=== PATIENT | female | born 1955 | race Caucasian/White ===

== ENCOUNTER → 2016-12-15 | Outpatient (CLI) | payer OTHER ==
[~2016-12-15] MED LIST: ANTIVERT25 MG PO; CLINDAMYCIN150 MG PO; Ecotrin325 MG PO; HYDROCODONE BIT1 T11 PO; LISINOPRIL2.5 MG; MEDROL DOSEPAK4 MG PO; MOTRIN800 MG PO; NORFLEX100 MG PO; PERCOCET 325 MG1 TA2 PO; PERCOCET 325 MG1 TA7 PO; PLAVIX75 MG; PREDNICOT20 MG PO; TORADOL10 MG PO; VALIUM5 MG PO; ZOCOR40 MG; Zofran4 MG PO
== END | disposition home or self-care (01) ==
LOC: MAMMO 03:11
DX: Z12.31 Encounter for screening mammogram for malignant neoplasm of breast (principal)

== ENCOUNTER 2017-06-01 03:20 | Emergency (ER) | payer OTHER ==
[~2017-06-01] VITALS: Ht 152.4 cm; Wt 88.5 kg
[2017-06-01 05:58] VITALS: BP 118/56
== END 2017-06-01 06:15 | disposition home or self-care (01) ==
LOC: ED 03:20
DX: R10.13 Epigastric pain (principal); M54.6 Pain in thoracic spine; Z88.2 Allergy status to sulfonamides; Z79.82 Long term (current) use of aspirin; Z79.899 Other long term (current) drug therapy

== ENCOUNTER 2017-10-18 23:38 | Emergency (ER) | payer OTHER ==
[~2017-10-18] VITALS: Ht 154.9 cm; Wt 89.8 kg
[2017-10-19 00:23] LABS: BILIRUBIN 1+ (NEGATIVE); BLOOD 3+ (NEGATIVE); CLARITY CLEAR (CLEAR); COLOR YELLOW (YELLOW); GLUCOSE NEGATIVE (NEGATIVE); KETONE NEGATIVE (NEGATIVE); LEUKO ESTERASE TRACE (NEGATIVE); NITRITE NEGATIVE (NEGATIVE); PH 5.5 (5.0-9.0); SPECIFIC GRAVITY >= 1.030 (1.005-1.030)
[2017-10-19 00:29] LABS: BASO % 0.2 % (0.0-1.0); EOS % 0.7 % (1.0-4.0); HEMATOCRIT 42.7 % (37.0-47.0); HEMOGLOBIN 14.4 g/dl (12.0-16.0); LYMPH # 0.5 10*3/uL (1.3-4.4); LYMPH % 12.4 % (27.0-41.0); MEAN CELL VOLUME 90.1 fl (81.0-99.0); MEAN CORPUSCULAR HGB 30.4 pg (27.0-31.0); MEAN CORPUSCULAR HGB CONC 33.7 g/dl (33.0-37.0); MEAN PLATELET VOLUME 9.1 fl (9.6-12.3); MONO # 0.3 10*3/uL (0.1-1.0); MONO % 7.1 % (3.0-9.0); NEUT # 3.5 10*3/uL (2.3-7.9); NEUT % 79.1 % (47.0-73.0); PLATELET COUNT AUTOMATED 121 10*3/uL (130-400); RED BLOOD COUNT 4.74 10*6/uL (4.10-5.10); RED CELL DISTRI WIDTH 12.8 % (0-14.5); WHITE BLOOD COUNT 4.4 10*3/uL (4.8-10.8)
[2017-10-19 00:47] LABS: ALBUMIN 3.5 gm/dl (3.1-4.5); ALKALINE PHOSPHATASE 124 U/L (45-117); BUN 10 mg/dl (7-24); CHLORIDE 102 mmol/L (98-107); CREATININE 0.82 mg/dL (0.55-1.02); POTASSIUM 3.8 mmol/L (3.5-5.1); SGOT/AST 102 IU/L (3-35); SGPT/ALT 108 U/L (12-78); SODIUM 139 mmol/L (136-145)
[2017-10-19 00:50] LABS: TROPONIN I < 0.015 ng/ml (<0.045)
[2017-10-19 00:53] LABS: CALCIUM OXALATE CRYSTALS 1+; RBC 21-30 rbc/hpf (0-2)
[2017-10-19 02:39] VITALS: BP 100/62
[2017-10-20] MEDS ORDERED: ZOFRAN ODT4 MG SL (13:28)
[2017-10-20] MEDS ORDERED: NORCO 10-325 T1 EACH PO (13:29)
== END 2017-10-19 02:46 | disposition home or self-care (01) ==
LOC: ED 23:38
PROVIDERS: Emergency Medicine Emergency Medical Services
DX: B34.9 Viral infection, unspecified (principal); R94.5 Abnormal results of liver function studies; M54.5 Low back pain; Z79.82 Long term (current) use of aspirin; Z88.2 Allergy status to sulfonamides

== ENCOUNTER 2017-10-20 10:56 | Emergency (ER) | payer OTHER ==
[~2017-10-20] VITALS: Ht 154.9 cm; Wt 89.8 kg
[2017-10-20] MEDS ORDERED: ZOFRAN ODT4 MG SL (13:28)
[2017-10-20] MEDS ORDERED: NORCO 10-325 T1 EACH PO (13:29)
[2017-10-20 13:46] VITALS: BP 124/65
== END 2017-10-20 13:56 | disposition home or self-care (01) ==
LOC: ED 10:56
DX: R51 Headache (principal); B34.9 Viral infection, unspecified; Z98.51 Tubal ligation status; Z98.890 Other specified postprocedural states; Z79.899 Other long term (current) drug therapy; Z79.82 Long term (current) use of aspirin; Z88.2 Allergy status to sulfonamides

== ENCOUNTER 2017-10-31 17:10 | Emergency (ER) | payer OTHER ==
[~2017-10-31] VITALS: Ht 154.9 cm; Wt 89.8 kg
[~2017-10-31 17:10] MED LIST changes: +NORCO 10-325 T1 EACH PO; +ZOFRAN ODT4 MG SL
[2017-10-31 17:11] VITALS: BP 169/82
[2017-10-31] MEDS ORDERED: ARTIFICIAL TEAR15 M1 OPH (17:27)
[2017-10-31] MEDS ORDERED: DELTASONE20 M1 PO (17:27)
[2017-10-31] MEDS ORDERED: ARTIFICIAL TEA3.5 G1 OP (17:27)
[2017-10-31] MEDS ORDERED: VALTREX1000 MG PO (17:27)
[2017-10-31 17:39] LABS: BASO % 0.7 % (0.0-1.0); EOS # 0.1 10*3/uL (0.0-0.4); EOS % 1.3 % (1.0-4.0); HEMATOCRIT 42.1 % (37.0-47.0); HEMOGLOBIN 13.6 g/dl (12.0-16.0); LYMPH # 1.6 10*3/uL (1.3-4.4); LYMPH % 27.1 % (27.0-41.0); MEAN CELL VOLUME 92.5 fl (81.0-99.0); MEAN CORPUSCULAR HGB 29.9 pg (27.0-31.0); MEAN CORPUSCULAR HGB CONC 32.3 g/dl (33.0-37.0); MEAN PLATELET VOLUME 8.5 fl (9.6-12.3); MONO # 0.7 10*3/uL (0.1-1.0); MONO % 11.3 % (3.0-9.0); NEUT # 3.6 10*3/uL (2.3-7.9); NEUT % 59.1 % (47.0-73.0); PLATELET COUNT AUTOMATED 227 10*3/uL (130-400); RED BLOOD COUNT 4.55 10*6/uL (4.10-5.10); RED CELL DISTRI WIDTH 12.9 % (0-14.5)
[2017-10-31 17:57] LABS: ALBUMIN 3.6 gm/dl (3.1-4.5); ALKALINE PHOSPHATASE 120 U/L (45-117); BUN 12 mg/dl (7-24); CHLORIDE 108 mmol/L (98-107); POTASSIUM 4.4 mmol/L (3.5-5.1); SGOT/AST 14 IU/L (3-35); SGPT/ALT 32 U/L (12-78); SODIUM 142 mmol/L (136-145); TOTAL PROTEIN 7.3 gm/dL (6.4-8.2)
[2017-11-03 12:08] LABS: IGG P18 AB Absent (.); IGG P23 AB Absent (.); IGG P28 AB Absent (.); IGG P30 AB Absent (.); IGG P39 AB Absent (.); IGG P41 AB Present (.); IGG P45 AB Absent (.); IGG P58 AB Absent (.); IGG P63 AB Absent (.); IGG P66 AB Absent (.); IGM P23 AB Present (.); IGM P39 AB Present (.); IGM P41 AB Present (.); LYME IGG WB INTERPRETATION Negative (.); LYME IGM WB INTERPRETATION Positive (.)
[2017-11-03 15:03] LABS: LYME REFLEX CHARGE CHG
== END 2017-10-31 17:30 | disposition home or self-care (01) ==
LOC: ED 17:10
PROVIDERS: Emergency Medicine
DX: G51.0 Bell's palsy (principal); Z88.2 Allergy status to sulfonamides; Z79.899 Other long term (current) drug therapy; Z79.82 Long term (current) use of aspirin

== ENCOUNTER → 2017-12-21 | Outpatient (CLI) | payer OTHER ==
[~2017-12-21] MED LIST changes: +ARTIFICIAL TEA3.5 G1 OP; +ARTIFICIAL TEAR15 M1 OPH; +DELTASONE20 M1 PO; +VALTREX1000 MG PO
== END | disposition home or self-care (01) ==
LOC: MAMMO 08:38
DX: N64.4 Mastodynia (principal)

== ENCOUNTER → 2020-03-19 | Outpatient (CLI) | payer MEDICARE | END | disposition home or self-care (01) | LOC: MAMMO 10:56 | PROVIDERS: ATTEND Family Medicine | DX: Z12.31 Encounter for screening mammogram for malignant neoplasm of breast (principal) ==

== ENCOUNTER 2020-07-25 02:10 | Emergency (ER) | payer MEDICARE ==
[~2020-07-25] VITALS: Ht 154.9 cm; Wt 81.6 kg
[2020-07-25 02:17] VITALS: BP 159/92
[2020-07-25] MEDS ORDERED: AMOXICILLIN500 M2 PO (02:39)
== END 2020-07-25 02:48 | disposition home or self-care (01) ==
LOC: ED 02:10
DX: K04.7 Periapical abscess without sinus (principal); Z98.51 Tubal ligation status; Z98.890 Other specified postprocedural states; Z79.82 Long term (current) use of aspirin; Z79.899 Other long term (current) drug therapy; Z88.2 Allergy status to sulfonamides

== ENCOUNTER 2020-12-23 21:07 | Emergency (ER) | payer MEDICARE ==
[~2020-12-23] VITALS: Ht 154.9 cm; Wt 81.6 kg
[~2020-12-23 21:07] MED LIST changes: +AMOXICILLIN500 M2 PO
[2020-12-23 22:12] VITALS: BP 145/83
[2020-12-23] MEDS ORDERED: NAPROXEN250 MG PO (23:41)
== END 2020-12-24 00:04 | disposition home or self-care (01) ==
LOC: ED 21:07
DX: S90.31XA Contusion of right foot, initial encounter (principal); Z88.2 Allergy status to sulfonamides; Z79.2 Long term (current) use of antibiotics; Z79.899 Other long term (current) drug therapy; Z79.82 Long term (current) use of aspirin; Z98.890 Other specified postprocedural states; Z95.5 Presence of coronary angioplasty implant and graft; Z98.51 Tubal ligation status; W22.8XXA Striking against or struck by other objects, initial encounter; Y93.89 Activity, other specified; Y92.89 Other specified places as the place of occurrence of the external cause; Y99.8 Other external cause status

== ENCOUNTER → 2021-03-18 | Outpatient (CLI) | payer MEDICARE ==
[~2021-03-18] MED LIST changes: +NAPROXEN250 MG PO
== END | disposition home or self-care (01) ==
LOC: RAD 03-13 13:30 → US 03-16 08:30 → RAD 03-16 09:30
PROVIDERS: ATTEND Family Medicine
DX: M85.80 Other specified disorders of bone density and structure, unspecified site (principal); Z78.0 Asymptomatic menopausal state

== ENCOUNTER → 2021-10-19 | Outpatient (CLI) | payer MEDICARE | END | disposition home or self-care (01) | LOC: MAMMO 08:30 | PROVIDERS: ATTEND Family Medicine | DX: Z12.31 Encounter for screening mammogram for malignant neoplasm of breast (principal) ==

== ENCOUNTER 2021-11-16 22:59 | Emergency (ER) | payer MEDICARE ==
[~2021-11-16] VITALS: Ht 154.9 cm; Wt 86.2 kg
[2021-11-16 23:05] VITALS: BP 165/75
[2021-11-16 23:38] LABS: BASO # 0.1 10*3/uL (0.0-0.1); BASO % 0.5 % (0.0-1.0); EOS # 0.2 10*3/uL (0.0-0.4); EOS % 2.2 % (1.0-4.0); HEMATOCRIT 42.7 % (37.0-47.0); LYMPH # 3.5 10*3/uL (1.3-4.4); LYMPH % 34.5 % (27.0-41.0); MEAN CELL VOLUME 92.4 fl (81.0-99.0); MEAN CORPUSCULAR HGB 30.3 pg (27.0-31.0); MEAN CORPUSCULAR HGB CONC 32.8 g/dl (33.0-37.0); MEAN PLATELET VOLUME 8.9 fl (9.6-12.3); NEUT # 5.4 10*3/uL (2.3-7.9); NEUT % 52.5 % (47.0-73.0); PLATELET COUNT AUTOMATED 226 10*3/uL (130-400); RED BLOOD COUNT 4.62 10*6/uL (4.10-5.10); RED CELL DISTRI WIDTH 12.5 % (0-14.5); WHITE BLOOD COUNT 10.2 10*3/uL (4.8-10.8)
[2021-11-16 23:57] LABS: ALKALINE PHOSPHATASE 110 U/L (45-117); BUN 18 mg/dl (7-24); CHLORIDE 110 mmol/L (98-107); CREATININE 0.72 mg/dL (0.55-1.02); POTASSIUM 3.8 mmol/L (3.5-5.1); SGOT/AST 22 IU/L (3-35); SGPT/ALT 28 U/L (12-78); SODIUM 142 mmol/L (136-145); TOTAL PROTEIN 6.6 gm/dL (6.4-8.2)
== END 2021-11-17 02:16 | disposition home or self-care (01) ==
LOC: ED 22:59
PROVIDERS: Internal Medicine
DX: R00.2 Palpitations (principal); R51.9 Headache, unspecified; I49.3 Ventricular premature depolarization; Z88.2 Allergy status to sulfonamides; Z79.82 Long term (current) use of aspirin; Z79.899 Other long term (current) drug therapy; Z98.51 Tubal ligation status; Z98.890 Other specified postprocedural states

== ENCOUNTER → 2023-08-04 | Outpatient (CLI) | payer MEDICARE ==
[2023-08-04 09:03] LABS: CHOLESTEROL 141 mg/dL (<200); LDL CHOLESTEROL 50 mg/dL (9-159); TRIGLYCERIDES 122 mg/dl (<150)
== END | disposition home or self-care (01) ==
LOC: LAB 08:12
PROVIDERS: ATTEND Internal Medicine Cardiovascular Disease
DX: E78.2 Mixed hyperlipidemia (principal)

== ENCOUNTER → 2023-08-15 | Outpatient (CLI) | payer MEDICARE | END | disposition home or self-care (01) | LOC: CARD 01:29 | PROVIDERS: ATTEND Internal Medicine Cardiovascular Disease | DX: R00.2 Palpitations (principal) ==

== ENCOUNTER → 2023-12-07 | Outpatient (CLI) | payer MEDICARE ==
[2023-12-07 10:45] LABS: BASO % 0.5 % (0.0-1.0); EOS # 0.1 10*3/uL (0.0-0.4); EOS % 1.5 % (1.0-4.0); HEMATOCRIT 41.9 % (37.0-47.0); LYMPH # 2.4 10*3/uL (1.3-4.4); LYMPH % 29.5 % (27.0-41.0); MEAN CELL VOLUME 92.9 fl (81.0-99.0); MEAN CORPUSCULAR HGB CONC 33.4 g/dl (33.0-37.0); MEAN PLATELET VOLUME 8.9 fl (9.6-12.3); MONO # 0.7 10*3/uL (0.1-1.0); MONO % 8.8 % (3.0-9.0); NEUT # 4.8 10*3/uL (2.3-7.9); NEUT % 59.3 % (47.0-73.0); PLATELET COUNT AUTOMATED 200 10*3/uL (130-400); RED BLOOD COUNT 4.51 10*6/uL (4.10-5.10); RED CELL DISTRI WIDTH 12.7 % (0-14.5)
[2023-12-07 11:09] LABS: ALKALINE PHOSPHATASE 107 U/L (46-116); BUN 10 mg/dl (9-23); CHLORIDE 105 mmol/L (98-107); CHOLESTEROL 159 mg/dL (<200); LDL CHOLESTEROL 69 mg/dL (9-159); POTASSIUM 4.2 mmol/L (3.4-5.1); SGPT/ALT 15 U/L (5-49); TOTAL PROTEIN 6.7 gm/dL (6.0-8.0); TRIGLYCERIDES 138 mg/dl (<150)
[2023-12-07 11:46] LABS: VITAMIN D, 25-HYDROXY 40.4 ng/mL (30-100)
== END | disposition home or self-care (01) ==
LOC: LAB 10:24
PROVIDERS: ATTEND Nurse Practitioner Family
DX: I10 Essential (primary) hypertension (principal); E78.00 Pure hypercholesterolemia, unspecified; R63.5 Abnormal weight gain; I25.2 Old myocardial infarction; F43.21 Adjustment disorder with depressed mood

== ENCOUNTER → 2023-12-26 | Outpatient (CLI) | payer MEDICARE | END | disposition home or self-care (01) | LOC: LAB 00:24 → MAMMO 00:24 | PROVIDERS: ATTEND Nurse Practitioner Family | DX: Z12.31 Encounter for screening mammogram for malignant neoplasm of breast (principal); I10 Essential (primary) hypertension; E78.5 Hyperlipidemia, unspecified; R73.01 Impaired fasting glucose; E53.8 Deficiency of other specified B group vitamins ==

== ENCOUNTER → 2024-03-23 | Outpatient (CLI) | payer MEDICARE ==
[2024-03-23 08:56] LABS: BASO % 0.5 % (0.0-1.0); EOS # 0.1 10*3/uL (0.0-0.4); EOS % 1.5 % (1.0-4.0); HEMATOCRIT 43.8 % (37.0-47.0); MEAN CELL VOLUME 94.6 fl (81.0-99.0); MEAN CORPUSCULAR HGB 30.9 pg (27.0-31.0); MEAN CORPUSCULAR HGB CONC 32.6 g/dl (33.0-37.0); MONO # 0.7 10*3/uL (0.1-1.0); MONO % 8.2 % (3.0-9.0); NEUT # 4.9 10*3/uL (2.3-7.9); NEUT % 61.7 % (47.0-73.0); PLATELET COUNT AUTOMATED 241 10*3/uL (130-400); RED BLOOD COUNT 4.63 10*6/uL (4.10-5.10); RED CELL DISTRI WIDTH 12.7 % (0-14.5)
[2024-03-23 10:04] LABS: ALKALINE PHOSPHATASE 102 U/L (46-116); BUN 10 mg/dl (9-23); CHLORIDE 103 mmol/L (98-107); CHOLESTEROL 137 mg/dL (<200); LDL CHOLESTEROL 56 mg/dL (9-159); POTASSIUM 3.9 mmol/L (3.4-5.1); SGPT/ALT 20 U/L (5-49); TOTAL PROTEIN 7.1 gm/dL (6.0-8.0); TRIGLYCERIDES 114 mg/dl (<150)
== END | disposition home or self-care (01) ==
LOC: LAB 07:40 → RAD 08:00
PROVIDERS: ATTEND Nurse Practitioner Family
DX: Z13.820 Encounter for screening for osteoporosis (principal); I10 Essential (primary) hypertension; E78.5 Hyperlipidemia, unspecified; R73.01 Impaired fasting glucose; E53.8 Deficiency of other specified B group vitamins; Z78.0 Asymptomatic menopausal state

== ENCOUNTER → 2024-09-27 | Outpatient (CLI) | payer MEDICARE ==
[2024-09-27 08:57] LABS: BASO % 0.3 % (0.0-1.0); EOS # 0.1 10*3/uL (0.0-0.4); EOS % 1.7 % (1.0-4.0); HEMATOCRIT 42.8 % (37.0-47.0); MEAN CELL VOLUME 93.9 fl (81.0-99.0); MEAN CORPUSCULAR HGB 30.3 pg (27.0-31.0); MEAN CORPUSCULAR HGB CONC 32.2 g/dl (33.0-37.0); MEAN PLATELET VOLUME 8.7 fl (9.6-12.3); MONO # 0.7 10*3/uL (0.1-1.0); MONO % 9.4 % (3.0-9.0); NEUT # 3.7 10*3/uL (2.3-7.9); NEUT % 52.6 % (47.0-73.0); PLATELET COUNT AUTOMATED 202 10*3/uL (130-400); RED BLOOD COUNT 4.56 10*6/uL (4.10-5.10); RED CELL DISTRI WIDTH 12.8 % (0-14.5); WHITE BLOOD COUNT 6.9 10*3/uL (4.8-10.8)
[2024-09-27 10:58] LABS: ALKALINE PHOSPHATASE 97 U/L (46-116); BUN 12 mg/dl (9-23); CHLORIDE 104 mmol/L (98-107); CHOLESTEROL 141 mg/dL (<200); LDL CHOLESTEROL 61 mg/dL (9-159); POTASSIUM 4.2 mmol/L (3.4-5.1); SGPT/ALT 19 U/L (5-49); TOTAL PROTEIN 6.7 gm/dL (6.0-8.0); TRIGLYCERIDES 92 mg/dl (<150)
[2024-09-27 11:18] LABS: FREE T4 1.09 ng/dl (0.89-1.76)
[2024-09-27 11:44] LABS: VITAMIN D, 25-HYDROXY 34.9 ng/mL (30-100)
== END | disposition home or self-care (01) ==
LOC: LAB 08:41
PROVIDERS: ATTEND Nurse Practitioner Primary Care
DX: I10 Essential (primary) hypertension (principal); E78.5 Hyperlipidemia, unspecified; R73.01 Impaired fasting glucose; E55.9 Vitamin D deficiency, unspecified

== ENCOUNTER → 2024-12-28 | Outpatient (CLI) | payer MEDICARE | END | disposition home or self-care (01) | LOC: LAB 07:22 | PROVIDERS: ATTEND Nurse Practitioner Primary Care | DX: E53.8 Deficiency of other specified B group vitamins (principal); R94.6 Abnormal results of thyroid function studies ==